=== PATIENT | female | born 1990 | race Caucasian/White ===

== ENCOUNTER 2024-09-25 06:52 | Emergency (ER) | payer OTHER, SELFPAY ==
[2024-09-25 07:39] VITALS: BP 120/69; PULSE 81; RESP 18; TEMP 36.8; O2SAT 98
--- NOTE | 2024-09-25 08:09 | ED_ITS ---
HPI - Wound/Laceration General: Chief Complaint: Wound/Laceration Stated Complaint: L hand cut Time Seen by Provider: 09/25/24 06:56 History of Present Illness: 33-year-old female presents emergency ro om she was at work and lacerated her right index finger and thenar eminence with a box attacher when she was opening a box. She is unsure of her last tetanus no other injuries Related Data Previous Rx's ?Medication ?Instructions ?Recorded ondansetron 4 mg disintegrating 4 mg PO Q8H PRN nausea and 03/03/24 tablet vomiting #10 tabs Allergies Allergy/AdvReac Type Severity Reaction Status Date / Time Penicillins Allergy Unknown Unknown Verified 03/03/24 17:54 PFSH ED PFSH: Social History Smoking and tobacco/nicotine status: never used tobacco/nicotine Physical Exam Back/Pelvis: OTHER: Superficial laceration across the thenar eminence unable to open the wound and is not full-thickness. At that midportion of the palmar surface of the left index finger there is a 2- 1/2 cm laceration. It is full-thickness no active bleeding. Able to flex and extend hold flexion against resistance no tendon involvement Procedures Laceration Laceration 1: Site: hand Side (If applicable): left Size (cm): 2.5 Description: linear Depth: simple, single layer Local Anesthetic: lidocaine 1% (Digital nerve block) Amount of anesthesia used (mL): 3 Pre-repair: irrigated extensively Skin layer closed with: nylon Size (cm): 4-0 Nerve Block Nerve Block 1: Local Anesthetic: lidocaine 1% Amount of anesthesia used (mL): 3 Side: left Nerve Blocks: digital (Left second finger) Procedure Successful: Yes Course Vital Signs: Vital signs: Vital Signs Temperature 98.2 F 09/25/24 07:39 Pulse Rate 81 09/25/24 07:39 Respiratory Rate 18 09/25/24 07:39 Blood Pressure 120/69 09/25/24 07:39 Pulse Oximetry 98 09/25/24 07:39 Oxygen Delivery Me thod Room Air 09/25/24 07:39 MDM - Wound/Laceration Medical Decision Making Warm sutures after digital nerve block applied wound care instructions given remove sutures in 7-10 a No radiology studies performed this visit Discharge Plan Discharge Patient Disposition: Home Clinical Impression: Laceration Condition: Stable Prescriptions: No Action ondansetron 4 mg tablet,disintegrating 4 mg PO Q8H PRN (Reason: nausea and vomiting) Qty: 10 0RF Discharge Orders: Discharge ED (Routine); Ordered 09/25/24 Ordered By: Arsh Kulkarni Discharge Diet: Usual diet Discharge Activity: Resume usual activity Patient Instructions: Opioid Safety, Pain Management, Patient Portal & Eddie Instructions Activity Restrictions/Additional Instructions: [facility]. It is very important that you follow up as instructed or that you return to the Emergency Department should you have concerns or if your condition changes or worsens in any way. You were seen in the emergency room with a laceration to your finger. It was closed with sutures sutures removed in 7 to 10 days by your primary care doctor. Apply topical antibiotic ointment to the wound daily until the sutures are removed. Keep wound dressed and covered when you are working. Do not soak the wound in water. Print Language: Greenlandic Coding Level of Care Code ED Cut Out Stitcher for Molly Kraft
[2024-09-25] MEDS: tetanus-dipt-pertussis 0.5 mL SDV IM (08:33)
[2024-09-25 08:35] VITALS: BP 120/69; PULSE 80; O2SAT 99
== END 2024-09-25 08:36 | disposition home or self-care (01) ==
PROVIDERS: Emergency Provider Family Medicine
DX: S61.211A Laceration without foreign body of left index finger without damage to nail, initial encounter (principal); W26.8XXA Contact with other sharp object(s), not elsewhere classified, initial encounter
CPT/HCPCS: 12001; 90471; 90715; 99283